=== PATIENT | female | born 1955 | race Caucasian/White ===

== ENCOUNTER → 2020-10-10 16:26 | Outpatient (CLI) | payer MEDICARE, SELFPAY ==
--- NOTE | ~2020-10-10 | MM_ITS ---
EXAMINATION: MM screening jonathan BI w lorraine HISTORY: Screening mammogram TECHNIQUE: Craniocaudal and mediolateral oblique 3-D tomosynthesis images were obtained and synthetic 2-D images were generated. CAD analysis was submitted and interpreted. COMPARISON: 07/04/2017, 05/09/2016, 04/06/2015 bilateral digital screening mammogram examinations BREAST PARENCHYMAL COMPOSITION: The breasts are heterogeneously dense, which may obscure small masses . FINDINGS: History of bilateral benign breast biopsies. Stable mild fibroglandular asymmetry. There is no evidence of suspicious mass, calcification, or architectural distortion to suggest malignancy in either breast. There has been no suspicious interval change. IMPRESSION: 1. No mammographic evidence of malignancy. 2. Recommend routine screening mammography in one year. BI-RADS Category 2: Benign finding(s). Reviewed, dictated and finalized at location A. LOGIST
== END ==
PROVIDERS: PCP Internal Medicine; Visit Provider Internal Medicine
DX: Z12.31 Encounter for screening mammogram for malignant neoplasm of breast (principal)
CPT/HCPCS: 77063; 77067

== ENCOUNTER → 2022-03-29 10:59 | Outpatient (CLI) | payer MEDICARE, SELFPAY ==
--- NOTE | ~2022-03-29 | DEXA_ITS ---
Bone Density Report Name: KEYANNA BARNES Age: 66 Sex: Female Ethnicity: White Date of : 1955 Indication: osteopenia; postmenopausal Referring Provider: RENNY MARKHAM Study: Bone densitometry was performed. Exam Date: March 29, 2022 Accession number: [id number] Bone Density: Region BMD T-score Z-score Classification AP Spine (L1-L4) 0.886 -1.5 0.5 Osteopenia Femoral Neck (Left) 0.661 -1.7 0.0 Osteopenia Total Hip (Left) 0.801 -1.2 0.3 Osteopenia Femoral Neck (Right) 0.690 -1.4 0.3 Osteopenia Total Hip (Right) 0.855 -0.7 0.7 Normal Total Hip Mean 0.828 -1.0 0.5 Normal World Health Organization criteria for BMD impression classify patients as: Normal (T-score at or above -1.0), Osteopenia (T-score between -1.0 and -2.5), or Osteoporosis (T-score at or below -2.5). 10-year Fracture Risk(1): Major Osteoporotic Fracture 10% Hip Fracture 1.4% Reported Risk Factors: [place] (), Neck BMD=0.661, BMI=26.1 (1) FRAX(R) Version 3.08. Fracture probability calculated for an untreated patient. Fracture probability may be lower if the patient has received treatment. Previous Exams: Region Exam Age BMD T-score BMD Change BMD Change Date g/cm2 vs Baseline vs Previous AP Spine(L1-L4) 03/29/2022 66 0.886 -1.5 -0.126* -0.030* 05/09/2016 60 0.916 -1.2 -0.096* -0.034* 02/09/2013 57 0.951 -0.9 -0.061* -0.003 11/24/2010 55 0.954 -0.8 -0.058* -0.058* 08/27/2007 51 1.012 -0.3 Total Hip(Left) 03/29/2022 66 0.801 -1.2 -0.107* -0.039* 05/09/2016 60 0.840 -0.8 -0.068* -0.033* 02/09/2013 57 0.873 -0.6 -0.035* -0.074* 11/24/2010 55 0.947 0.0 0.039* 0.039* 08/27/2007 51 0.908 -0.3 Total Hip(Right) 03/29/2022 66 0.855 -0.7 -0.097* -0.090* 05/09/2016 60 0.945 0.0 -0.006 0.061* 02/09/2013 57 0.884 -0.5 -0.067* -0.045* 11/24/2010 55 0.929 -0.1 -0.022 -0.022 08/27/2007 51 0.952 0.1 *Denotes significance at 95% confidence level, LSC for AP Spine = 0.022 g/cm2, LSC for Total Hip = 0.027 g/cm2 Clinical Information Provided by Patient: Patient maximum height was 61.0 Menopause Age: 58 Drinks caffeinated beverages Onset of menses at age 12 Number of children 2 Martha
== END ==
PROVIDERS: PCP Internal Medicine; Visit Provider Internal Medicine
DX: Z78.0 Asymptomatic menopausal state (principal); M85.88 Other specified disorders of bone density and structure, other site; M85.852 Other specified disorders of bone density and structure, left thigh; M85.851 Other specified disorders of bone density and structure, right thigh
CPT/HCPCS: 77080

== ENCOUNTER 2022-06-27 01:19 | Day surgery (SDC) | payer MEDICARE, SELFPAY ==
[2022-06-13 13:39] VITALS: BMI 26.2
--- NOTE | 2022-06-26 16:13 | PM.HPGS ---
History of Present Illness History of Present Illness Consent: Risks, benefits, and alternatives have been discussed and questions answered. Patient agrees to proceed with procedure. Chief complaint: hx of colon polyps, family hx colon ca Narrative: Tiffanie Campbell is a 66 year old female with history of polyps. Her last colonoscopy was 5 years ago when she had a small polyp removed at that time.Her mother from colon cancer and her maternal grandfather had colon cancer as well. Review of Systems Review of Systems: All systems reviewed & are unremarkable except as noted in HPI and below PMFSH Past Medical History Medical History Body mass index (bmi) 26.0-26.9, adult (12/12/17) Family History Family History Mother Carcinoma of colon, Onset Age: 65 Family history of primary malignant neoplasm of liver Father Malignant neoplasm of prostate, Onset Age: 92 Hypertension, Onset Age: 92 Grandparent Carcinoma of colon, Onset Age: 104 Social History Social History Smoking status: Never smoker Second hand tobacco smoke exposure: No Alcohol intake: current Drinks per week: 1 Alcohol use details: mixed drinks Substance use: never Substance use type: does not use Living arrangements: with family Spiritual care concerns: No Meds Home Medications and Allergies Home Medications Medication Instructions Recorded Confirmed Type aspirin 81 mg tablet,delayed 81 mg PO DAILY 10/08/19 06/13/22 History release (Aspir-) citalopram 10 mg tablet See Rx Instructions .Route 01/04/22 06/13/22 Rx .COMPLEX #90 tabs losartan 25 mg tablet See Rx Instructions .Route 02/19/22 06/13/22 Rx .COMPLEX #90 tabs sodium sul 1.479 gram-potas ch See Rx Instructions PO PER PKG DIR 02/27/22 06/27/22 Rx 0.188 gram-magnes sul 0.225 gram #24 tabs tablet (Sutab) hydrochlorothiazide 25 mg tablet See Rx Instructions .Route 03/08/22 06/13/22 Rx .COMPLEX #90 tabs loratadine 10 mg tablet (Claritin) 10 mg PO DAILY 06/13/22 06/13/22 History potassium chloride 10 mEq See Rx Instructions .Route 06/22/22 06/27/22 Rx capsule,extended release .COMPLEX #90 caps simvastatin 20 mg tablet 20 mg PO DAILY #90 tabs 06/22/22 06/27/22 Rx Allergies Allergy/AdvReac Type Severity Reaction Status Date / Time No Known Allergies Allergy Unknown Verified 06/27/22 06:26 Exam Resp: Auscultation: clear to auscultation bilaterally Cardio: Rate: regular rate Rhythm: regular rhythm GI: GI Palp: Yes Soft to palpation and No Tenderness to palpation present (GI) Assessment and Plan Assessment and plan (1) Colon cancer screening: Code(s): Z12.11 - Encounter for screening for malignant neoplasm of colon Status: Acute Assessment and Plan: Colonoscopy with possible biopsy or polypectomy or cautery or injection of substances.
[2022-06-27 06:27] VITALS: BP 159/96; PULSE 110; RESP 18; TEMP 36.6; O2SAT 97; BMI 26.6
[2022-06-27] MEDS: LACTATED RINGERS 1,000 ML 150 ML IV CONT (06:35)
--- NOTE | 2022-06-27 07:23 | WPDANESEPPF ---
Anes - Initial Pre Proc Eval Procedure: Operation Date: 06/27/22 07:30 Proposed Procedures p Screening Colonoscopy - Gurdeep Lance MD Date/Time: 06/27/22 07:23 Surgeon: Gurdeep Lance MD Pre Op Diagnosis: hx of colon polyps, family hx colon ca Patient Data Age: 66 Gender: F Height: 1.52 m Weight: 61.9 kg Last Vital Signs Temp 97.8 F 06/27/22 06:27 Pulse 110 H 06/27/22 06:27 Resp 18 06/27/22 06:27 BP 159/96 H 06/27/22 06:27 Pulse Ox 97 06/27/22 06:27 O2 Del Method Room Air 06/27/22 06:27 Allergies Allergy/AdvReac Type Severity Reaction Status Date / Time No Known Allergies Allergy Unknown Verified 06/27/22 06:26 Home Medications Medication Instructions Recorded Confirmed Type aspirin 81 mg tablet,delayed 81 mg PO DAILY 10/08/19 06/13/22 History release (Aspir-) citalopram 10 mg tablet See Rx Instructions .Route 01/04/22 06/13/22 Rx .COMPLEX #90 tabs losartan 25 mg tablet See Rx Instructions .Route 02/19/22 06/13/22 Rx .COMPLEX #90 tabs sodium sul 1.479 gram-potas ch See Rx Instructions PO PER PKG DIR 02/27/22 06/27/22 Rx 0.188 gram-magnes sul 0.225 gram #24 tabs tablet (Sutab) hydrochlorothiazide 25 mg tablet See Rx Instructions .Route 03/08/22 06/13/22 Rx .COMPLEX #90 tabs loratadine 10 mg tablet (Claritin) 10 mg PO DAILY 06/13/22 06/13/22 History potassium chloride 10 mEq See Rx Instructions .Route 06/22/22 06/27/22 Rx capsule,extended release .COMPLEX #90 caps simvastatin 20 mg tablet 20 mg PO DAILY #90 tabs 06/22/22 06/27/22 Rx Patient hx anesthesia problems: none Family hx anesthesia problems: none Results Review: All pre-operative results and documents have been reviewed as part of the pre-operative evaluation. [facility] Past Medical History Medical History Body mass index (bmi) 26.0-26.9, adult (12/12/17) Family History Family History Mother Carcinoma of colon, Onset Age: 65 Family history of primary malignant neoplasm of liver Father Malignant neoplasm of prostate, Onset Age: 92 Hypertension, Onset Age: 92 Grandparent Carcinoma of colon, Onset Age: 104 Social History Social History Smoking status: Never smoker Second hand tobacco smoke exposure: No Alcohol intake: current Drinks per week: 1 Alcohol use details: mixed drinks Substance use: never Substance use type: does not use Living arrangements: with family Spiritual care concerns: No Anes - Eval Final PreProcedure Day of Procedure 06/27/22 07:23 Patient weight: normal Heart: regular rate and rhythm Lungs: clear to auscultation Airway: Mallampati scale class II Neurological: alert and oriented Last oral intake: >/= 8 hours ASA classification: II Emergent: no Anesthetic plan: proceed Anesthesia type and monitoring: general GIVS and standard monitoring Results Review: All pre-operative results and documents have been reviewed as part of the pre-operative evaluation. Informed Consent: The patient's anesthetic plan and its attendant risks and benefits were discussed with the patient/family/POA. Questions were solicited and answers provided to the satisfaction of the patient/family/POA.
[2022-06-27 07:45] VITALS: BP 98/58; PULSE 95; RESP 22; O2SAT 93
[2022-06-27 07:55] VITALS: BP 97/63; PULSE 90; RESP 16; O2SAT 93
[2022-06-27 08:05] VITALS: BP 114/68; PULSE 91; RESP 18; O2SAT 93
== END 2022-06-27 08:15 | disposition home or self-care (01) ==
PROVIDERS: PCP Family Medicine; Visit Provider Internal Medicine Gastroenterology
PROC: 0DJD8ZZ Inspection of Lower Intestinal Tract, Via Natural or Artificial Opening Endoscopic (ICD-10-PCS; CPT 45378; principal; 2022-06-27 07:30)
DX: Z12.11 Encounter for screening for malignant neoplasm of colon (principal); Z86.010 Personal history of colon polyps; Z80.0 Family history of malignant neoplasm of digestive organs; K64.8 Other hemorrhoids; K57.30 Diverticulosis of large intestine without perforation or abscess without bleeding
CPT/HCPCS: G0105; J2704; J7120

== ENCOUNTER → 2022-11-16 13:48 | Outpatient (CLI) | payer MEDICARE, SELFPAY ==
--- NOTE | ~2022-11-16 | MM_ITS ---
EXAMINATION: MM screening jonathan BI w lorraine HISTORY: Screening TECHNIQUE: Craniocaudal and mediolateral oblique 3-D tomosynthesis images were obtained and synthetic 2-D images were generated. CAD analysis was submitted and interpreted. COMPARISON: Comparison to multiple prior studies sequentially, with oldest reviewed study dated 02/10. BREAST PARENCHYMAL COMPOSITION: There are scattered areas of fibroglandular density. FINDINGS: There is no evidence of suspicious mass, calcification, or architectural distortion to sugg est malignancy in either breast. There has been no suspicious interval change. IMPRESSION: 1. No mammographic evidence of malignancy. 2. Recommend routine screening mammography in one year. BI-RADS Category 1: Negative Reviewed, dictated and finalized at location A. YARD WORKER
== END ==
PROVIDERS: PCP Family Medicine; Visit Provider Family Medicine
DX: Z12.31 Encounter for screening mammogram for malignant neoplasm of breast (principal)
CPT/HCPCS: 77063; 77067

== ENCOUNTER 2023-05-28 08:06 | Outpatient (CLI) | payer MEDICARE, SELFPAY ==
[2023-05-28 14:21] LABS: Alanine Aminotransferase 27 U/L (6-35); Albumin Level 4.5 g/dL (3.5-5.1); Alkaline Phosphatase 79 U/L (38-126); Anion Gap 7 mmol/L (8-16); Aspartate Amino Transferase 43 U/L (14-36); Bilirubin,Total 0.5 mg/dL (0.2-1.3); Blood Urea Nitrogen 19 mg/dL (7-17); Calcium 9.7 mg/dL (8.4-10.2); Carbon Dioxide 28 mmol/L (22-30); Chloride 99 mmol/L (98-107); Cholesterol 220 mg/dL (0-200); Estimated Glomerular Filt Rate > 60; Glucose 99 mg/dL (65-110); HDL Direct 50 mg/dL; Potassium 3.3 mmol/L (3.4-5.0); Sodium 134 mmol/L (137-145); Triglycerides 226 mg/dL (<150)
[2023-05-28 14:32] LABS: LDL Cholesterol Direct 102 mg/dL
== END 2023-05-28 08:07 | disposition home or self-care (01) ==
PROVIDERS: PCP Family Medicine; Visit Provider Family Medicine
DX: E78.5 Hyperlipidemia, unspecified (principal); I10 Essential (primary) hypertension
CPT/HCPCS: 36415; 80053; 80061

== ENCOUNTER 2023-06-13 13:51 | Outpatient (CLI) | payer MEDICARE, SELFPAY ==
[2023-06-13 17:21] LABS: Alanine Aminotransferase 28 U/L (6-35); Albumin Level 4.6 g/dL (3.5-5.1); Alkaline Phosphatase 73 U/L (38-126); Anion Gap 9 mmol/L (8-16); Aspartate Amino Transferase 48 U/L (14-36); Bilirubin,Total 0.4 mg/dL (0.2-1.3); Blood Urea Nitrogen 23 mg/dL (7-17); Calcium 9.1 mg/dL (8.4-10.2); Carbon Dioxide 29 mmol/L (22-30); Chloride 97 mmol/L (98-107); Estimated Glomerular Filt Rate > 60; Glucose 117 mg/dL (65-110); Potassium 3.3 mmol/L (3.4-5.0); Sodium 135 mmol/L (137-145)
== END 2023-06-13 13:52 | disposition home or self-care (01) ==
LOC: ANHGOSHLAB 13:53
PROVIDERS: PCP Family Medicine; Visit Provider Family Medicine
DX: R89.9 Unspecified abnormal finding in specimens from other organs, systems and tissues (principal)
CPT/HCPCS: 36415; 80053

== ENCOUNTER 2023-07-16 10:14 | Outpatient (CLI) | payer MEDICARE, SELFPAY ==
[2023-07-16 12:21] LABS: Anion Gap 8 mmol/L (8-16); Blood Urea Nitrogen 22 mg/dL (7-17); Calcium 9.6 mg/dL (8.4-10.2); Carbon Dioxide 27 mmol/L (22-30); Chloride 100 mmol/L (98-107); Estimated Glomerular Filt Rate > 60; Glucose 106 mg/dL (65-110); Potassium 3.8 mmol/L (3.4-5.0); Sodium 135 mmol/L (137-145)
== END 2023-07-16 10:15 | disposition home or self-care (01) ==
PROVIDERS: PCP Family Medicine; Visit Provider Family Medicine
DX: E87.6 Hypokalemia (principal)
CPT/HCPCS: 36415; 80048

== ENCOUNTER → 2023-12-19 12:11 | Outpatient (CLI) | payer MEDICARE, SELFPAY ==
--- NOTE | ~2023-12-19 | MM_ITS ---
EXAMINATION: MM screening jonathan BI w lorraine HISTORY: Screening TECHNIQUE: Craniocaudal and mediolateral oblique 3-D tomosynthesis images were obtained and synthetic 2-D images were generated. CAD analysis was submitted and interpreted. COMPARISON: Comparison to multiple prior studies sequentially, with oldest reviewed study dated 04/06. BREAST PARENCHYMAL COMPOSITION: There are scattered areas of fibroglandular density. FINDINGS: There is no evidence of suspicious mass, calcification, or architectural distortion to sugg est malignancy in either breast. There has been no suspicious interval change. IMPRESSION: 1. No mammographic evidence of malignancy. 2. Recommend routine screening mammography in one year. BI-RADS Category 1: Negative Reviewed, dictated and finalized at location A. RY AND WAGE ADMINISTRATOR
== END ==
PROVIDERS: PCP Family Medicine; Visit Provider Family Medicine
DX: Z12.31 Encounter for screening mammogram for malignant neoplasm of breast (principal)
CPT/HCPCS: 77063; 77067

== ENCOUNTER 2024-05-05 08:19 | Outpatient (CLI) | payer MEDICARE, SELFPAY ==
[2024-05-05 13:22] LABS: Alanine Aminotransferase 28 U/L (6-35); Albumin Level 4.6 g/dL (3.5-5.1); Alkaline Phosphatase 92 U/L (38-126); Anion Gap 11 mmol/L (4-12); Aspartate Amino Transferase 46 U/L (14-36); Bilirubin,Total 0.7 mg/dL (0.2-1.3); Blood Urea Nitrogen 18 mg/dL (7-17); Calcium 9.4 mg/dL (8.4-10.2); Carbon Dioxide 27 mmol/L (22-30); Chloride 100 mmol/L (98-107); Cholesterol 202 mg/dL (0-200); Estimated Glomerular Filt Rate > 60; Glucose 99 mg/dL (65-110); HDL Direct 48 mg/dL; Potassium 3.8 mmol/L (3.4-5.0); Sodium 138 mmol/L (137-145); Triglycerides 199 mg/dL (<150)
[2024-05-05 13:33] LABS: LDL Cholesterol Direct 99 mg/dL
== END 2024-05-05 08:20 | disposition home or self-care (01) ==
PROVIDERS: PCP Family Medicine; Visit Provider Family Medicine
DX: E78.5 Hyperlipidemia, unspecified (principal); Z13.228 Encounter for screening for other metabolic disorders
CPT/HCPCS: 36415; 80053; 80061

== ENCOUNTER 2024-07-17 14:53 | Emergency (ER) | payer MEDICARE, SELFPAY ==
[2024-07-17 15:02] VITALS: BP 162/82; PULSE 111; RESP 18; TEMP 37.1; O2SAT 98
--- NOTE | 2024-07-17 15:02 | ED.FEMALEGU ---
HPI - Female Genitourinary General Chief complaint: Urogenital-Female Stated complaint: Urinary Problems Time Seen by Provider: 07/17/24 15:05 Source: patient Mode of arrival: ambulatory Limitations: no limitations History of Present Illness HPI Narrative: Tiffanie is a 68-year-old female patient presenting to the clinic today with complaints burning with urination, frequency, urgency for the past 3 days. She denies any fever, chills, body aches, nausea, vomiting, back pain, or abdominal pain. No vaginal discharge or odor. Related Data Allergies Allergy/AdvReac Type Severity Reaction Status Date / Time No Known Allergies Allergy Unknown Verified 07/17/24 15:06 Review of Systems Review of Systems: Pertinent positives per HPI. Patient denies any fever, chills, rash, headache, visual changes, dizziness, cough, runny nose, sore throat, shortness of breath, chest pain, palpitations, nausea, vomiting, diarrhea, constipation, abdominal pain PMFSH Past Medical History Medical History Body mass index (bmi) 26.0-26.9, adult (12/12/17) Family History Family History Mother Carcinoma of colon, Onset Age: 65 Family history of primary malignant neoplasm of liver Father Malignant neoplasm of prostate, Onset Age: 92 Hypertension, Onset Age: 92 Grandparent Carcinoma of colon, Onset Age: 104 Social History Social History Social History: caffeine- 1 glass tea daily Smoking status: Never smoker Second hand tobacco smoke exposure: No Alcohol intake: current Alcohol use details: 1 every 2 months Substance use: never Substance use type: does not use Do You Feel Safe in your Home?: Yes Lack of Transportation: No Lack of Food: Never True Current Housing: I Have Housing Concerned About Future Housing: No Difficulty Paying Gas/Electric Bills: No Difficulty Paying for Meds: No Currently Unemployed: No Education: Bachelor's Degree Difficulty w/ Childcare or Family Care: No Living arrangements: with family Spiritual care concerns: No Comments At the time of my signature, I reviewed and agree with the nursing past medical, surgical, social, and family history. There is no relevant family history pertinent to the patient complaint. Exam Narrative: General: Well-developed, well nourished, in no apparent distress. Head: Normocephalic, atraumatic. Cardio: Regular rate and rhythm, s1 and s2 normal, no murmur appreciated. Resp: Clear to auscultation bilaterally, no rhonchi, rales, wheezing or rubs. Abdomen: Soft, pliable, bowel sounds present in all quadrants, suprapubic tender to palpation, no organomegly, no CVAT tenderness. Course Course Emergency Course: Portions of this record may have been created with voice recognition software. Level of Care: Express Care Visit Vital Signs Vital signs: Vital Signs Temperature 37.1 C 07/17/24 15:02 Pulse Rate 111 H 07/17/24 15:02 Respiratory Rate 18 07/17/24 15:02 Blood Pressure 162/82 H 07/17/24 15:02 Pulse Oximetry 98 07/17/24 15:02 Oxygen Delivery Room Air 07/17/24 15:02 Temperature 37.1 C 07/17/24 15:02 Pulse Rate 111 H 07/17/24 15:02 Respiratory Rate 18 07/17/24 15:02 Blood Pressure 162/82 H 07/17/24 15:02 Pulse Oximetry 98 07/17/24 15:02 Oxygen Delivery Room Air 07/17/24 15:02 Vital signs reviewed MDM - Female Genitourinary MDM Narrative Medical decision making narrative: At the time of visit patient is resting comfortably on the exam table. Patient appears to be nontoxic. Labs: Urinalysis was performed and shows trace of leukocytes and trace of hematuria. We will send urine for culture. Plan: I suspect patient has urinary tract infection. Prescription for Keflex was sent to th
[2024-07-20 14:24] LABS: EDUAAPPEAR Clear; EDUABILI Negative (Negative); EDUABLOOD Trace (Negative); EDUACOLOR1 Yellow; EDUAGLUCOSE Negative (Negative); EDUAKETONE Negative (Negative); EDUALEUKO Trace (Negative); EDUANITRATE Negative (Negative); EDUAPROTEIN Negative (Negative); EDUASPGRAVITY 1.015; EDUAUROBILI 0.2
== END 2024-07-17 15:27 | disposition home or self-care (01) ==
PROVIDERS: Emergency Provider Nurse Practitioner Family; PCP Family Medicine
DX: N30.01 Acute cystitis with hematuria (principal)
CPT/HCPCS: 81003; 87086; 99213; G0463

== ENCOUNTER 2024-08-27 11:07 | Emergency (ER) | payer MEDICARE, SELFPAY ==
--- NOTE | 2024-08-27 11:14 | ED_ITS ---
HPI - General Adult General Chief complaint: Urogenital-Female Stated complaint: uti, symptoms,cough, lt ear discomfort Time Seen by Provider: 08/27/24 11:32 Source: patient, RN notes reviewed and old records reviewed Mode of arrival: ambulatory Limitations: no limitations History of Present Illness HPI narrative: 68-year-old female presents to the [facility] with multiple complaints. Patient with concerns for a urinary tract infection. Patient reports frequency and occasional burning for approximately 10 days. Patient with concerns for upper respiratory infection, cough, left ear discomfort. Patient states that it started over a month ago. Cough is been intermittent. Reports left ear pressure. States that she does take Claritin and uses Flonase daily. Patient denies fevers. Denies abdominal pain. Denies nausea or vomiting or diarrhea. Related Data Allergies Allergy/AdvReac Type Severity Reaction Status Date / Time No Known Allergies Allergy Unknown Verified 08/27/24 11:21 Review of Systems Review of Systems: All systems reviewed & are unremarkable except as noted in HPI and below Constitutional: Constitutional: Reports no additional constitutional complaints ENT: Reports as per HPI Cardiovascular: Cardiovascular: Reports no additional cardiovascular complaints, Denies chest pain and Denies dyspnea Respiratory: Respiratory: Reports no additional respiratory complaints, Denies chest congestion, Denies cough and Denies dyspnea Gastrointestinal: Gastrointestinal: Reports no additional gastrointestinal complaints, Denies abdominal pain, Denies nausea and Denies vomiting Genitourinary: Genitourinary: Reports as per HPI Musculoskeletal: Musculoskeletal: Reports no additional musculoskeletal complaints Integumentary/Breasts: Skin/Breast: Reports system reviewed and no additional complaints, except as docu PMFSH Past Medical History Medical History Anxiety with depression Benign essential hypertension Body mass index (bmi) 26.0-26.9, adult (12/12/17) Hyperlipidemia LDL goal <130 Pure hypercholesterolemia Family History Family History Mother Carcinoma of colon, Onset Age: 65 Family history of primary malignant neoplasm of liver Father Malignant neoplasm of prostate, Onset Age: 92 Hypertension, Onset Age: 92 Grandparent Carcinoma of colon, Onset Age: 104 Social History Social History Social History: caffeine- 1 glass tea daily Smoking status: Never smoker Second hand tobacco smoke exposure: No Alcohol intake: current Alcohol use details: 1 every 2 months Substance use: never Substance use type: does not use Do You Feel Safe in your Home?: Yes Lack of Transportation: No Lack of Food: Never True Current Housing: I Have Housing Concerned About Future Housing: No Difficulty Paying Gas/Electric Bills: No Difficulty Paying for Meds: No Currently Unemployed: No Education: Bachelor's Degree Difficulty w/ Childcare or Family Care: No Living arrangements: with family Spiritual care concerns: No Comments At the time of my signature, I reviewed and agree with the nursing past medical, surgical, social, and family history. There is no relevant family history pertinent to the patient complaint. Exam Const: General: cooperative, healthy appearing, comfortable, no acute distress, well developed, alert and well nourished Nutritional Appearance: well nourished Orientation/consciousness: patient oriented x3 Limitations: no limitations HENMT: Head: normal to inspection Ears: hearing grossly normal bilaterally, external ears normal, EAC's normal, mastoids normal, no periauricular adenopathy and TM abnormal bulging on the left and with fluid behind the TM bilateral; not erythematous Face/Nose/Sinus: Normal external nose present, normal facial exam and face symmetric Face and sinus: normal facial exam and face symmetric Mouth: Yes Normal oral and palatal mucosa present, Yes lip normal and Yes tongue normal Throat: posterior oropharynx normal, uvula midline and no uvular edema Eyes: General: appearance normal, both eyes and all related structures Alignment and Position: alignment normal Periorbital: periorbital findings normal Neck: Neck: normal visual inspection, full ROM, no lymphadenopathy and no meningeal signs Chest: Chest palpation & inspection: normal inspection of the chest Resp: Effort & Inspection: normal respiratory effort and able to speak in complete sentences Auscultation: clear to auscultation bilaterally, no crack les, no rales, no rhonchi and no wheezes Cardio: Rate: regular rate : General: Yes no CVA tenderness Skin: General skin exam: normal color and no rashes or lesions noted Lesions: no lesions Rashes: no rashes Wounds: no wounds Neuro: General: patient oriented x3, gait normal, tone normal, moves all ex tremities and no meningeal signs Cognition (Neuro): normal cognition Speech: normal speech Gait exam (Neuro): Normal gait present Extrem: General: normal to inspection, full ROM, capillary refill normal and normal gait Psych: Appearance: grossly normal and well kempt Mental Status: mental status grossly normal Speech and movement: Normal speech and movement present and Clear speech present Affect: normal affect Attitude: cooperative Course Course Level of Care: Express Care Visit Vital Signs Vital signs: Vital Signs Temperature 97.1 F L 08/27/24 11:27 Pulse Rate 126 H 08/27/24 11:27 Respiratory Rate 16 08/27/24 11:27 Blood Pressure 168/91 H 08/27/24 11:27 Pulse Oximetry 98 08/27/24 11:27 Temperature 97.1 F L 08/27/24 11:27 Pulse Rate 126 H 08/27/24 11:27 Respiratory Rate 16 08/27/24 11:27 Blood Pressure 168/91 H 08/27/24 11:27 Pulse Oximetry 98 08/27/24 11:27 Reviewed Medical Decision Making MDM Narrative Medical decision making narrative: Patient sitting comfortably in exam room. Nontoxic, vitals stable. Patient in no acute distress Patient presents for 2 complaints. Concern for upper respiratory, cough an ear pain for over a month. Patient also concerns for a UTI. Urine dip did not show signs of an infection, will culture Patient with intermittent cough for 1 month and ear pain for over a month. No signs of bacterial infection, appropriate for outpatient treatment with steroid and [id number] products Discharge instructions reviewed with patient, as well as provided in writing per nursing staff. The instructions also include specific and strict return/GO TO THE ER as well as f/u information. All questions have been answered, and the patient deny any further questions with discharge and discharge plan. Some parts of this dictation were generated by voice recognition software and may contain typographical and/or grammatical inaccuracies. Differential Diagnosis Differential Diagnosis: URI, UTI, allergy Medical Records Medical records reviewed: Yes I reviewed the external patient's medical records. Vital Signs Vital Signs: Vital Signs Temperature 97.1 F L 08/27/24 11:27 Pulse Rate 126 H 08/27/24 11:27 Respiratory Rate 16 08/27/24 11:27 Blood Pressure 168/91 H 08/27/24 11:27 Pulse Oximetry 98 11/07/24 11:27 Temperature 97.1 F L 08/27/24 11:27 Pulse Rate 126 H 08/27/24 11:27 Respiratory Rate 16 08/27/24 11:27 Blood Pressure 168/91 H 08/27/24 11:27 Pulse Oximetry 98 08/27/24 11:27 Reviewed Lab Data Lab results reviewed: Yes I reviewed the patient's lab results. Labs: Lab Results 08/27/24 Range/Units 11:32 POC Urine Color Yellow POC Urine Clarity Clear POC Urine pH 5.5 POC Ur Specif Donner 1.030 POC Urine Protein Negative (Negative) POC Ur Glucose (UA) Negative (Negative) POC Urine Ketones Negative (Negative) POC Urine Blood Trace (Negative) POC Urine Nitrite Negative (Negative) POC Urine Bilirubin Negative (Negative) POC Urine Urobilinogen 0.2 POC U Leukocyte Esteras Negative (Negative) Reviewed Critical Care Time Critical Care Time Critical Care Time: No Discharge Plan Discharge Clinical Impression: Acute serous otitis media of left ear, Dysuria Patient Disposition: Home, Self-Care Condition: Stable Instructions: Chronic Cough (ED), Dysuria (ED), Fluid In The Ear (Serous Otitis Media) (ED) Additional Instructions: Today your blood pressure was 168/91. It is recommended that you do follow-up with your primary care provider to have this rechecked. Increased water intake, decrease your Tea intake Take Tylenol as needed for pain Today your urine dip did not show signs of a UTI. You have been prescribed an antibiotic. Your urine will be sent to our lab for a culture. If at that time a bacteria grows, we aill notify you and call in an antibiotic. -Alternate Tylenol and Motrin per package directions for fever or pain. -Antihistamine medication such as Benadryl at night and Zyrtec/Claritin/Lidia during the day can help improve symptoms. -doing daily nasal irrigations can help relieve pressure your sinuses. Things like a Neti pot -Use Flonase twice a day for 5 days then daily to help reduce the inflammation and dry up your sinuses. -You can also use Coricidin HBP or Mucinex. Be sure to drink plenty of water with these medications at least 8 ounces with every dose and it is important to drink 8 to 10 glasses of water per day. Water is a natural decongestant -Eat and drink things that are easy to swallow, like tea or soup, or popsicles. -Oral rinses such as: Salt water gargles and/or may use topical anesthetic (eg. Chloraseptic spray) or lozenges to relieve dryness or throat pain). -Frequent hand washing or hand high school professional is one of the best ways to prevent spread of infection. -Using a vaporizer or humidifier at night will also help thin secretions and help with coughing up phlegm. -Follow up with primary care provider in 7 days if condition is not improving - For new or worsening symptoms go directly to the nearest ER Patient Language: Welsh Prescriptions: New methylprednisolone [Medrol (Hubert)] 4 mg tablets,dose pack See Rx Instructions PO .COMPLEX Qty: 21 0RF Rx Instructions: orally per package directions No Action potassium chloride 20 mEq tablet extended release 20 meq PO DAILY Qty: 90 1RF citalopram 10 mg tablet 10 mg PO DAILY Qty: 90 1RF losartan 25 mg tablet 25 mg PO DAILY Qty: 90 1RF simvastatin 20 mg tablet 20 mg PO DAILY Qty: 90 1RF Follow-up/Referrals: Giacomo Duran DO [Primary Care Provider] - 2 Weeks ([facility] care follow up blood pressure check ) Stand Alone Forms: Work/School Release IP Time of Disposition: 11:45
[2024-08-27 11:27] VITALS: BP 168/91; PULSE 126; RESP 16; TEMP 36.2; O2SAT 98
[2024-08-27 11:40] LABS: EDUAAPPEAR Clear; EDUABILI Negative (Negative); EDUABLOOD Trace (Negative); EDUACOLOR1 Yellow; EDUAGLUCOSE Negative (Negative); EDUAKETONE Negative (Negative); EDUALEUKO Negative (Negative); EDUANITRATE Negative (Negative); EDUAPH 5.5; EDUAPROTEIN Negative (Negative); EDUAUROBILI 0.2
== END 2024-08-27 11:50 | disposition home or self-care (01) ==
PROVIDERS: Emergency Provider Nurse Practitioner; PCP Family Medicine
DX: H65.02 Acute serous otitis media, left ear (principal); R30.0 Dysuria; I10 Essential (primary) hypertension; E78.5 Hyperlipidemia, unspecified; E78.00 Pure hypercholesterolemia, unspecified
CPT/HCPCS: 81003; 87086; 99213; G0463

== ENCOUNTER 2024-09-04 10:05 | Outpatient (CLI) | payer MEDICARE, SELFPAY ==
--- NOTE | ~2024-09-04 | DEXA_ITS ---
Bone Density Report Name: KEYANNA BARNES Age: 68 Sex: Female Ethnicity: White Date of : 1955 Indication: postmenopausal; screening for osteoporosis; Referring Provider: EVANS CUBA Study: Bone densitometry was performed. Exam Date: September 04, 2024 Accession number: [id number] Bone Density: Region BMD T-score Z-score Classification AP Spine(L1-L4) 0.907 -1.3 0.9 Osteopenia Femoral Neck (Left) 0.655 -1.7 0.1 Osteopenia Total Hip (Left) 0.892 -0.4 1.1 Normal Femoral Neck (Right) 0.650 -1.8 0.0 Osteopenia Total Hip (Right) 0.878 -0.5 1.0 Normal Total Hip Mean 0.885 -0.5 1.1 Normal World Health Organization criteria for BMD impression classify patients as: Normal (T-score at or above -1.0), Osteopenia (T-score between -1.0 and -2.5), or Osteoporosis (T-score at or below -2.5). 10-year Fracture Risk(1): Major Osteoporotic Fracture 11% Hip Fracture 1.8% Reported Risk Factors: [place] (), Neck BMD=0.655, BMI=27.2 (1) FRAX(R) Version 3.08. Fracture probability calculated for an untreated patient. Fracture probability may be lower if the patient has received treatment. Clinical Information Provided by Patient: Has used the following medications: Calcium Patient maximum height was 61 Menopause Age: 58 Drinks caffeinated beverages Onset of menses at age 12 Number of children 2 Impression: The patient has low bone mass, based on the Right Femoral Neck T-score. The patient has an estimated ten-year risk of hip fracture of 1.8% and an estimated ten-year risk of major fracture of 11%, based on the WHO FRAX algorithm. Discussion: BONE DENSITY IS LOW AT ONE OR MORE SKELETAL SITES. This patient's lowest T-score is low at one or more skeletal sites. It meets the World Health Organization's (WHO) criteria for ?low bone mass? (T-score between -1.0 and -2.5). The patient's 10-year risk of fracture as calculated by FRAX is less than the threshold where pharmacological therapy is recommended by the National Osteoporosis Foundation (NOF). However, all treatment decisions require clinical judgment and consideration of individual patient factors, including patient preferences, comorbidities, previous drug use, risk factors not captured in the FRAX model (e.g., frailty, falls, vitamin D deficiency, increased bone turnover, interval significant decline in bone density) and possible under or overestimation of fracture risk by FRAX. The patient should follow a healthful lifestyle (good nutrition with adequate calcium and vitamin D, and appropriate weight-bearing exercise). Follow-Up: Consider repeating this study in 2 to 3 years to reassess this patient's status, or sooner if there is some new clinical indication. Reported by: JODI on 09/04/2024 10:56:00 AM. Reviewed, dictated and finalized at location [facility]
== END 2024-09-04 10:06 | disposition home or self-care (01) ==
LOC: ANHIMG 10:05
PROVIDERS: PCP Family Medicine; Visit Provider Family Medicine
DX: Z78.0 Asymptomatic menopausal state (principal); Z13.820 Encounter for screening for osteoporosis; M85.88 Other specified disorders of bone density and structure, other site; M85.852 Other specified disorders of bone density and structure, left thigh; M85.851 Other specified disorders of bone density and structure, right thigh
CPT/HCPCS: 77080

== ENCOUNTER 2025-02-25 14:15 | Outpatient (CLI) | payer MEDICARE, SELFPAY ==
--- NOTE | ~2025-02-25 | MM_ITS ---
EXAMINATION: MM screening jonathan BI w lorraine HISTORY: Screening TECHNIQUE: Craniocaudal and mediolateral oblique 3-D tomosynthesis images were obtained and synthetic 2-D images were generated. CAD analysis was submitted and interpreted. COMPARISON: Comparison to multiple prior studies sequentially, with oldest reviewed study dated 05/09. BREAST PARENCHYMAL COMPOSITION: Not dense: There are scattered areas of fibroglandular density. FINDINGS: There is no evidence of suspicious mass, calcification, or architectural distortion to sugg est malignancy in either breast. There has been no suspicious interval change. IMPRESSION: 1. No mammographic evidence of malignancy. 2. Recommend routine screening mammography in one year. BI-RADS Category 1: Negative Reviewed, dictated and finalized at location A.
== END 2025-02-25 14:16 | disposition home or self-care (01) ==
LOC: MICIMG 14:15
PROVIDERS: PCP Nurse Practitioner Family; Visit Provider Nurse Practitioner Family
DX: Z12.31 Encounter for screening mammogram for malignant neoplasm of breast (principal)
CPT/HCPCS: 77063; 77067

== ENCOUNTER 2025-03-02 08:30 | Outpatient (CLI) | payer MEDICARE, SELFPAY ==
--- OUTSIDE RECORDS SUMMARY | 2025-03-02 08:38 | XMS_ITS | Clinical Summary ---
Author Organization [facility] Address [address] [address] Phone Care Team Providers Care Roll Table Operator Name Role Phone Unavailable Primary Care Provider Unavailabl e Medications hydrocortisone (ANUSOL-HC) 25 MG Suppository Use twice daily as needed 24 Suppository 0 6 Active hydrocortisone (ANUSOL-HC) 2.5 % Cream Apply daily. Apply to rectum as directed. 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 Gender Identity Not on file Sexual Orientation Not on file Plan of Treatment Health Maintenance Due Date Last Done Comments DEXA Bone Density 1955 Hepatitis C Virus (HCV) Screening 1955 TdaP Immunization 1955 Cologuard 2003 Immunochemical Fecal Occult Blood 2003 Mammogram 2003 Pneumococcal Immunization (5 0+ years) (1 of 1 - PCV) 2003 Zoster Immunization (1 of 2) 2003 Influenza Immunization (#1) 2024 SARS-COV-2 Immunization ( - 2023- season) 2024 Colonoscopy 08/19/2024 08/19/2014 Colorectal Cancer Screening 08/19/2024 Respiratory Syncytial Virus (RSV) Immunization (Adult) (1 - 1-dose 75+ series) 2028 08/19/2014 Hepatitis B Immunization Aged Out No longer eligible based on patient's age to complete this topic Meningococcal Immunization (ACWY) Aged Out No longer eligible based on patient's age to complete this topic Rotavirus Immunization Aged Out No lo nger eligible based on patient's age to complete this topic Procedures Procedure Name Priority Date/Time Associated Diagnosis Comments COLONOSCOPY Routine 08/19/2014 from Last 3 Months or Most Recently Relevant to Health Maintenance Results * COLONOSCOPY (08/19/2014) Miguel Maryjane Leerod DO PROCEDURE/MINOR SURGICAL ORDERA BLES Final Result from Last 3 Months or Most Recently Relevant to Health Maintenance Insurance [facility]
--- OUTSIDE RECORDS SUMMARY | 2025-03-02 08:38 | XMS_ITS | Clinical Summary ---
Author Organization [facility] Address [address] [place] [address] Care Team Providers Care Deburrer Machine Name Role Phone Demian Momin MD Primary Care Provider [phone] Source Comments [facility],non-owned Affiliates and Associated Physician Practices is amultiple site organization consisting of ambulatory clinics and hospital sitesin [place], [place], [place] and [place]. This disclosure is being madepursuant to the Care Everywhere program and may not contain all information available regarding this patient. Last updated 18.[facility] Allergies No known active allergies Medications * Be aware that medications may not be up to date on this document. Alwaysverify current medications with the patient. hydrochlorothia zide (MICROZIDE) 12.5 MG capsule Take 12.5 mg by mouth once daily. Active metoprolol succinate XL 24hr (TOPROL XL) 50 MG tablet Take 50 mg by mouth once daily. Active saline nasal spray (OCEAN; BABY AYR) 0.65 % nasal spray Drake 1 Drake into each nostril every 6 hours as needed for Dry Nose (Dryness). 60 mL 1 10/26/2011 Active hydrocodone-anneliese taminophen (NORCO) 5-325 MG tablet Take 1 Tab by mouth every 4 hours as needed for Pain. 30 Tab 0 11/15/2011 Active hydrocodone-anneliese taminophen (NORCO) 5-325 MG tablet Take 1 Tab by mouth every 4 hours as needed for Pain. 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 Gender Identity Not on file Sexual Orientation Not on file Last Filed Vital Signs Vital Sign Reading Time Taken Comments Blood Pressure 116/72 12/06/2011 5:04 PM BALANCE SCREW[employer] POLISHER Pulse 70 12/06/2011 4:21 PM BALANCE SCREW[employer] POLISHER Temperature 36.9 C (98.4 F) 12/06/2011 4:21 PM BALANCE SCREWHEAD POLISHER Respiratory Rate 16 12/06/2011 4:21 PM BALANCE SCREWHEAD POLISHER Oxygen Saturation 98% 12/06/2011 4:21 PM BALANCE SCREWHEAD POLISHER Inhaled Oxygen Concentration 40% 10/25/2011 6 :30 PM BALANCE SCREWHEAD POLISHER Weight 60.3 kg (133 lb) 12/06/2011 1:32 PM BALANCE SCREWHEAD POLISHER Height 154.9 cm (5' 1 ) 12/06/2011 1:32 PM BALANCE SCREWHEAD POLISHER Body Mass Index 25.13 12/06/2011 1:32 PM BALANCE SCREWHEAD POLISHER Plan of Treatment Health Maintenance Due Date Last Done Comments BONE DENSITY TESTING 1955 COLOGUARD (AGES 45-75) - COL ON CA SCREENING 1955 COLON MONITORING 1955 COLONOSCOPY - COLON CA SCREENING 1953 CT COLONOGRAPHY - COLON CA SCREENING 1955 Colorectal Cancer Screening 1955 FIT - COLON CA SCREENING 1955 FLEX SIG - COLON CA SCREENING 1955 LIPID TESTING 1955 MAMMOGRAM 1955 HEPATITIS C SCREENING 10/02/1971 DTAP/TDAP/TD VACCINES (1 - Tdap) 1972 PNEUMOCOCCAL VACCINE 50+ (1 of 1 - PCV) 2003 ZOSTER VACCINE (1 of 2) 2003 COVID-19 VACCINE (1 - 2023-2 5 season) 2024 DEPRESSION SCREENING 10/21/2024 MEDICARE AWV CALENDAR YEAR 2024 INFLUENZA VACCINE (Season Ended) 2025 Respiratory Syncytial Virus (RSV) Vaccine Pt: or over 60 yrs (1 - 1-dose 75+ series) 2028 HEPATITIS B VACCINE Aged Out No longe r eligible based on patient's age to complete this topic HIB VACCINE Aged Out No longer eligi ble based on patient's age to complete this topic HPV VACCINE Aged Out No longer eligi ble based on patient's age to complete this topic MENINGOCOCCAL (Group B) VACC INE SHARED DECISION-MAKING Aged Out No longer eligibl e based on patient's age to complete this topic MENINGOCOCCAL GROUPS A/C/Y/W VACCINE Aged Out No longer eligible b ased on patient's age to complete this topic Insurance [employer] MANAGED MEDICARE ADV Advance Directives * FULL RESUSCITATION (Latest Code Status on File) Date Activated Date Inactivated Comments 10/25/2011 8:24 PM 10/26/2011 10:26 PM Care Teams Deburrer Machine Relationship Specialty Start Date End Date Demian Momin MD [address] [place] [address] PCP - General 09/27/11
--- OUTSIDE RECORDS SUMMARY | 2025-03-02 08:38 | XMS_ITS | Clinical Summary ---
Author Organization [facility] Address [address] [place] [address] Care Team Providers Care Manager Mall Name Role Phone Demian Momin MD Primary Care Provider [phone] Allergies Active Allergy Reactions Criticality Noted Date Comments Levonorgestrel-Ethinyl Estrad Headache Low 2010 Medications [place]-3 Fatty Acids 1,000 mg Oral Cap Take by mouth 2 times daily. Active Calcium Carbonate-Vit D3-Min (CALTRATE 600+D PLUS MINERALS) 600 mg (1,500 mg)-400 unit Oral Chew Take by mouth 2 times daily. Active aspirin (ASPIR-81) 81 mg Oral TbEC Take 81 mg by mouth daily. Active fluticasone (FLONASE) 50 mcg/spray [place], SuspensionIndic ations:Chronic rhinitis Administer 2 Sprays in each nostril daily. 16 Gram 5 4 Active simvastatin (ZOCOR) 20 mg tablet Take 1 Tab by mouth Daily LATE. 90 Tab 3 4 Active sertraline (ZOLOFT) 25 mg tabletIndicatio ns:Anxiety Take 1 Tab by mouth daily. 90 Tab 3 4 Active metoprolol succinate (TOPROL XL) 50 mg Extended Release 24 hour tabletIndicatio ns:Essential hypertension, benign Take 1 Tab by mouth daily. 90 Tab 3 4 Active hydrochlorothia zide 25 mg Oral tabletIndicatio ns:Essential hypertension, benign Take 1 Tab by mouth daily. 90 Tab 3 4 Active potassium chloride (MICRO-K EXTENCAPS) 10 mEq Extended Release capsule TAKE ONE CAPSULE BY MOUTH ONCE DAILY 90 Capsule 4 06/22/2023 9:05 AM CDT 2 Active azithromycin (ZITHROMAX) 250 mg tablet Take 2 tablets (500 mg) by mouth today, then take 1 tablet by mouth (250 mg) for 4 days. 6 Tablet 12/18/2022 5:01 PM CAFE AIDE 3 Active benzonatate (TESSALON) 100 mg capsule Take 1 Capsule (100 mg) by mouth 3 times daily as needed for cough. 40 Capsule 12/18/2022 5:01 PM CAFE AIDE 3 Active methylPREDNISol one (MEDROL DOSPACK) 4 mg Tablets, Dose Pack Take as directed on package. 21 Each 12/18/2022 5:01 PM CAFE AIDE 3 Active losartan (COZAAR) 25 mg tablet Take 1 Tablet (25 mg) by mouth daily. 90 Tablet 1 08/12/2023 2:05 PM CDT 3 Active hydroCHLOROthia zide 25 mg tablet Take 1 Tablet (25 mg) by mouth daily. 90 Tablet 1 05/30/2023 12:56 PM CDT 3 Active citalopram (CeleXA) 10 mg tablet Take 1 Tablet (10 mg) by mouth daily. 90 Tablet 1 12/13/2023 1:27 PM CAFE AIDE 3 Active hydroCHLOROthia zide 12.5 mg tablet Take 1 Tablet (12.5 mg) by mouth daily. 90 Tablet 1 01/15/2024 12:10 PM CDT 4 Active potassium chloride (K-TAB) 20 mEq Extended Release tablet Take 1 tablet by mouth daily 90 Tablet 1 02/07/2024 1:29 PM CDT 4 Active methylPREDNISol one (MEDROL DOSPACK) 4 mg Tablets, Dose Pack TAKE DIRECTED ON PACKAGE. 21 Each 08/28/2024 11:48 AM CAFE AIDE 4 Active citalopram (CeleXA) 10 mg tablet Take 1 Tablet (10 mg) by mouth daily. 90 Tablet 1 12/23/2024 10:04 AM CAFE AIDE 4 Active simvastatin (ZOCOR) 20 mg tablet Take 1 Tablet (20 mg) by mouth daily. 90 Tablet 1 02/03/2025 3:11 PM CDT 4 Active losartan (COZAAR) 25 mg tablet Take 1 Tablet (25 mg) by mouth daily. 90 Tablet 1 02/03/2025 3:11 PM CDT 4 Active omeprazole (PriLOSEC) 20 mg Capsule, Delayed Release(E.C.) Take 1 Capsule (20 mg) by mouth 1 time daily as needed FOR HEARTBURN. 90 Capsule 1 01/13/2025 12:41 PM CDT 5 Active Active Problems Problem Noted Date Diagnosed Date Basal cell carcinoma 05/21/2014 Overview (05/21/2014): S/P Mohs via Dr. Painter at [facility] (generalized anxiety disorder) 02/06/2013 Hyperlipemia 02/06/2013 History of scarlet fever 10/11/2011 Essential hypertension, benign 12/21/2010 Screening breast examination 12/21/2010 Overview (12/21/2010): UTD with Dr Hughes Family history of colon cancer 12/21/2010 Overview (12/21/2010): UTD with colonoscopy - repeat due 2013 First scope had polyp Resolved Problems Problem Noted Date Diagnosed Date Resolved Date Screening for osteoporosis 12/21/2010 0 02/06/2013 Encounters Date Type Department Care Team Description 01/06/2025 External Device Data [facility] Provider, Abstract 12/26/2024 External Device Data [facility] Provider, Abstract 12/25/2024 External Device Data [facility] Provider, Abstract 12/22/2024 External Device Data [facility] Provider, Abstract 12/08/2024 External Device Data [facility] Provider, Abstract from Last 3 Months Immunizations Immunization Administration Dates Next Due INFLUENZA VACCINE HIGH DOSE QUADRIVALENT 65 YR U P PF IM 07/13/2023 INFLUENZA VACCINE HIGH DOSE TRIVALENT SPLIT VIRUS, (65 YR UP), 0.5ML (PF), IM 09/03/2024 Family History Medical History Relation Name Comments Hypertension Brother Cancer Father Cancer Mother Relation Name Status Comments Brother Father Mother Social History Tobacco Use Types Packs/Day Years Used Date Smoking Tobacco: Never Alcohol Use Standard Drinks/Week Comments Yes 0 (1 standard drink = 0.6 oz pur e alcohol) rarely Comments No Sex and Gender Information Value Date Recorded Sex Assigned at Not on file Legal Sex Female 5:59 AM CAFE AIDE Gender Identity Not on file Sexual Orientation Not on file Occupation Industry Job Start Date Job End Date Not on file Not on file Not on file Not on file Last Filed Vital Signs Vital Sign Reading Time Taken Comments Blood Pressure 152/90 05/21/2014 10:25 AM CDT Pulse 70 05/21/2014 10:25 AM CDT Temperature 36.6 C (97.9 F) 12/21/2010 1:44 PM CAFE AIDE Respiratory Rate 14 05/21/2014 10:25 AM CDT Oxygen Saturation - - Inhaled Oxygen Concentration - - Weight 61.7 kg (136 lb) 05/21/2014 10:25 AM CDT Height 154.9 cm (5' 1 ) 05/21/2014 10:25 AM CDT Body Mass Index 25.7 05/21/2014 10:25 AM CDT Plan of Treatment Health Maintenance Due Date Last Done Comments DTAP/TDAP/TD VACCINES (1 - Tdap) 1972 FIT-DNA Q 3 years 1998 FIT/FOBT Q 1 year 1998 Flex Sig/CT Colonography Q 5 years 1998 PNEUMOCOCCAL VACCINE 50+ YEA RS (1 of 1 - PCV) 2003 ZOSTER VACCINE (1 of 2) 2003 BREAST CANCER SCREENING 02/17/2014 02/18/20 13, 01/20/2012, 11/21/2010 OSTEOPOROSIS SCREENING 2018 COLORECTAL SCREENING 09/03/2019 09/03/2014, 06/21/20 09 Colorectal Cancer Screening 09/03/2019 RSV VACCINE (60+ or ) (1 - 1-dose 75+ series) 2028 INFLUENZA VACCINE Completed 09/03/2024, 07/13/2023 Procedures Procedure Name Priority Date/Time Associated Diagnosis Comments ENDOSCOPY, COLON, SCREENING Routine 09/03/2014 from Last 3 Months or Most Recently Relevant to Health Maintenance Results * ENDOSCOPY, COLON, SCREENING (09/03/2014) us Historical Provider GI PROCEDURE ORDERABLES Edit ed Result - Final [facility] from Last 3 Months or Most Recently Relevant to Health Maintenance [place] [address] [facility] BLUE ACCESS CHOICE [place] [address] RX OPTUM RX Member Subscriber Plan / Payer (Ef fective for All Dates) Name:TIFFANIE BARNES Relation to Subscriber:Self Name:Tiffanie Barnes Payer ID:Not on file Group ID:[facility] Type:RX Medicare Part D Address: [address] RX FRAZIER PLANS (INTERNAL) [facility] Care Teams Manager Mall Relationship Specialty Start Date End Date Demian Momin MD PCP - General Internal Medicine 12/21/10
--- OUTSIDE RECORDS SUMMARY | 2025-03-02 08:38 | XMS_ITS | Continuity of Care Document ---
Author Organization [facility] Address [address] [place] [address] [address] [place] [address] Phone Care Team Providers Care Director Of Preclinical Research Name Role Phone Ophelia Julian Unavailable Unavailable Advance Directives Directive Yes / No Effective Date File Name No Information Encounters Encounter Description Practice Location Reason(s) For Visit Diagnoses Date Provider Providers Copied on Encounter [facility], [address], [place], [place], [id number], [place] tel:[phone] [facility] No Information [address] Iesha Jacinto. [address] , [address], [place], [address], [place]. tel:[phone] Family History Family Member Type Diagnosis Age At Onset No Information Payers Payer name Insurance type Covered green party ID Authoriza tion(s) No Information Social History Type Description Quantity Date Captured Comments Sex Female Smoking Status No Information Chief Complaint And Reason For Visit No Information Reason For Referral Reason For Referral No Information History Of Present Illness Encounter Date Complaint History Of Prese nt Illness No Information Functional Status Date Functional Assessmen t No Information Instructions Date Instruction Additional Infor mation No Information Assessments Type Assessment Date No Information Patient Care Teams Name Effective Dates (start - stop) Status Members No Information
--- NOTE | 2025-03-12 17:41 | P.SLEEP_ITS ---
Sleep Study - Home Unattended Date of Study: 03/02/25 Ordering Provider: Navya Nash NP Interpreting Provider: Kristan Cazares MD Home Sleep Study Type: Watch PAT Height: 1.55 m Weight: 65.771 kg Body Mass Index: 27.3 Neck Circumference (inches): 16.5 [place]: 1 Reason for Sleep Study Loud snoring, witnessed apneas Her dentist recommended a sleep study when she asked about an oral appliance. Sleep History Tiffanie Campbell is a 69-year-old woman with loud snoring and witnessed apneas per her . Her medical history significant for hypertension and anxiety with depression. She does not gasp for breath at night. She says that she does not have more problems breathing on her back compared to her side. She does not awaken with a morning headache. She does awaken with a dry mouth or a sore throat. She does not have nocturnal heartburn. She does not wake to urinate. She has never had a prior sleep study. She has no trouble falling asleep or staying asleep, however she awakens before her desired wake time. She does not feel anxious about her sleep. She does not feel refreshed on waking. She does not grind her teeth at night, she does not kick excessively and she denies having restless or uncomfortable feelings in her legs before bed. She does not have an urge to move her legs in the evening before sleep. Her normal sleep schedule is bedtime at 10:00 p.m., falling asleep within 30 minutes, spending 8 hours in bed and all of this time asleep. She does not feel refreshed upon waking. She maintains the same schedule on weekends. Habits: Tobacco : never smoker Caffeine : 1-2 daily Alcohol : none Recreational substances : none PMFSH Past Medical History Medical History GERD (gastroesophageal reflux disease) Osteopenia of multiple sites Dyslipidemia Anxiety with depression Benign essential hypertension Body mass index (bmi) 26.0-26.9, adult (12/12/17) Hx of skin cancer, basal cell Family History Family History Mother Carcinoma of colon, Onset Age: 65 Family history of primary malignant neoplasm of liver Father Malignant neoplasm of prostate, Onset Age: 92 Hypertension, Onset Age: 92 Grandparent Carcinoma of colon, Onset Age: 104 Social History Social History Social History: caffeine- 1 glass tea daily Smoking status: Never smoker Second hand tobacco smoke exposure: No Alcohol intake: current Alcohol use details: 1 every 2 months Substance use: never Substance use type: does not use Do You Feel Safe in your Home?: Yes Lack of Transportation: No Lack of Food: Never True Current Housing: I Have Housing Concerned About Future Housing: No Difficulty Paying Gas/Electric Bills: No Difficulty Paying for Meds: No Currently Unemployed: No Education: Bachelor's Degree Difficulty w/ Childcare or Family Care: No Living arrangements: with family Spiritual care concerns: No Medications Home Medications ?Medication ?Instructions ?Recorded ?Confirmed ?Type citalopram 10 mg tablet 10 mg PO DAILY #90 tabs 09/14/24 01/13/25 Rx losartan 25 mg tablet 25 mg PO DAILY #90 tabs 01/13/25 01/13/25 Rx omeprazole 20 mg capsule,delayed 20 mg PO DAILY PRN heartburn #90 01/13/25 01/13/25 Rx release caps simvastatin 20 mg tablet 20 mg PO DAILY #90 tabs 01/13/25 01/13/25 Rx Sleep Procedure The sleep study was completed using Degree ControlsT a technically adequate device with seven channels: peripheral arterial tone, actigraphy, body position, snore, respiratory movement, pulse oximetry, sleep staging, and heart rate. Prior to using the device, the patient received verbal and written instructions for its application and was provided with the help desk phone number for additional telephonic instruction with 24-hour availability of qualified personnel to answer questions. Sleep Architecture The total recording time is 7 hrs, 5 min. The total sleep time is 6 hrs, 3 min. Sleep latency is 15 minutes. REM latency is 154 minutes. The patient had 6 episodes of waking. Sleep architecture shows 19.4% deep sleep, 54.6% light sleep, and 26.0% stage REM. The patient spent 51.0% of total sleep time in the supine position. Sleep efficiency was 85%. Respiratory Analysis The overall AHI ( pAHI 4%) is 10.1, mild severity. The overall apnea hypopnea index (pAHI 3%:) is 21.2. The central AHI is 0.0. The AHI was 15.3 in NREM and 37.3 in REM sleep. The AHI was 42.1 in Supine and 0.7 in Non-supine sleep. Percent of Miguel Siddiqi respirations is 0%. Oximetry Data The oxygen desaturation index (JERED 4%:) is 10.1. The mean saturation is 93%, and the lowest saturation is 87%. Time spent with saturation < 88% is 0.2 minutes. Snoring Profile Snoring average intensity is 50 dB. The patient snored above 45 decibels for 232.6 minutes, 64.1% of sleep time. Cardiac Profile The average pulse rate is 75 beats per minutes. The lowest pulse rate is 56 bpm. The highest pulse rate is 103. Cardiac rhythm analysis in sleep does not show atrial fibrillation. Assessment and Plan Assessment and Plan (1) Obstructive sleep apnea: Code(s): G47.33 - Obstructive sleep apnea (adult) (pediatric) Status: Acute Assessment and Plan: This home sleep test using WatchPat on 03/02/2025 shows mild obstructive sleep apnea with an apnea hypogea index of 10.1 using a 4% criteria, desaturation to 87%, and loud snoring for much of the night. The patient has medical co- morbidities including hypertension and a mood disorder, allowing her to have treatment for her apnea. She is a candidate for PAP therapy or an oral appliance. Her primary care visit on January 13 stated that her dentist recommended a sleep test before discussing treatment with an oral appliance. If she has treatment using an oral appliance, consider a follow up polysomnogram using the oral device to assure that her treatment is adequate. If she decides to have treatment with positive airway pressure, consider a Resmed AirSense 11 AutoPAP 5-15 cm H2O, CPAP mask/filters/tubing and humidifier chamber with all episodes of sleep with a compliance check within 31-90 days of starting therapy for usage greater than 4 hours per night greater than 70% of the nights. The patient should be asked about symptoms such as excessive daytime sleepiness, quality of sleep, decreased nocturia, increased mental functioning such as yaima ry, mood, and concentration. (2) Positional sleep apnea: Code(s): G47.39 - Other sleep apnea Status: Acute Assessment and Plan: The supine apnea hypopnea indes is twice as severe in the supine position compared to the overall value. She can consider using pillows positioned on her back and abdomen to maintain her position in the lateral position to avoid snoring and apnea. This is not a durable treatment, however it may help to attenuate the severity of her apnea in the supine position. Her supine AHI is 42.1, the non-supine AHI is 0.7. Data The data obtained during this sleep study is adequate for interpretation. Certification This sleep study has been reviewed by a board certified sleep medicine physician.
[2025-03-12 18:32] VITALS: BMI 27.3
== END 2025-03-03 11:31 | disposition home or self-care (01) ==
PROVIDERS: PCP Nurse Practitioner Family; Visit Provider Nurse Practitioner Family
DX: G47.19 Other hypersomnia (principal); G47.33 Obstructive sleep apnea (adult) (pediatric); G47.39 Other sleep apnea
CPT/HCPCS: 95800

== ENCOUNTER 2025-09-08 08:13 | Outpatient (CLI) | payer MEDICARE, SELFPAY ==
[2025-09-08 15:17] LABS: Alanine Aminotransferase 53 U/L (6-35); Albumin Level 4.7 g/dL (3.5-5.1); Alkaline Phosphatase 92 U/L (38-126); Anion Gap 10 mmol/L (4-12); Aspartate Amino Transferase 47 U/L (14-36); Bilirubin,Total 0.4 mg/dL (0.2-1.3); Blood Urea Nitrogen 16 mg/dL (7-17); Calcium 9.3 mg/dL (8.4-10.2); Carbon Dioxide 25 mmol/L (22-30); Chloride 100 mmol/L (98-107); Estimated Glomerular Filt Rate > 60; Glucose 93 mg/dL (65-110); Potassium 3.8 mmol/L (3.4-5.0); Sodium 135 mmol/L (137-145); Total Protein 8.0 g/dL (6.3-8.2)
[2025-09-08 15:53] LABS: Thyroid Stimulating Hormone Reflex 3.770 uIU/mL (0.465-4.68)
[2025-09-10 10:46] LABS: Cholesterol 201 mg/dL (0-200); HDL Direct 56 mg/dL; Triglycerides 149 mg/dL (<150)
== END 2025-09-08 08:14 | disposition home or self-care (01) ==
LOC: ANHGOSHLAB 08:16
PROVIDERS: PCP Nurse Practitioner Family; Visit Provider Nurse Practitioner Family
DX: E55.9 Vitamin D deficiency, unspecified (principal); I10 Essential (primary) hypertension; E78.5 Hyperlipidemia, unspecified
CPT/HCPCS: 36415; 80053; 80061; 82306; 84443

== ENCOUNTER 2025-09-23 10:29 | Outpatient (CLI) | payer MEDICARE, SELFPAY ==
--- OUTSIDE RECORDS SUMMARY | 2025-09-23 11:39 | XMS_ITS | Clinical Summary ---
Author Organization [facility] Address [address] [place] [address] Care Team Providers Care Bilingual Student Tutor Name Role Phone Demian Momin MD Primary Care Provider [phone] Allergies Active Allergy Reactions Criticality Noted Date Comments Levonorgestrel-Ethinyl Estrad Headache Low 2010 Medications [place]-3 Fatty Acids 1,000 mg Oral Cap Take by mouth 2 times daily. Active Calcium Carbonate-Vit D3-Min (CALTRATE 600+D PLUS MINERALS) 600 mg (1,500 mg)-400 unit Oral Chew Take by mouth 2 times daily. Active aspirin (ASPIR-81) 81 mg Oral TbEC Take 81 mg by mouth daily. Active fluticasone (FLONASE) 50 mcg/spray [place], SuspensionIndi cations:Chroni c rhinitis Administer 2 Sprays in each nostril daily. 16 Gram 5 4 Active simvastatin (ZOCOR) 20 mg tablet Take 1 Tab by mouth Daily LATE. 90 Tab 3 4 Active sertraline (ZOLOFT) 25 mg tabletIndicati ons:Anxiety Take 1 Tab by mouth daily. 90 Tab 3 4 Active metoprolol succinate (TOPROL XL) 50 mg Extended Release 24 hour tabletIndicati ons:Essential hypertension, benign Take 1 Tab by mouth daily. 90 Tab 3 4 Active hydrochlorothi azide 25 mg Oral tabletIndicati ons:Essential hypertension, benign Take 1 Tab by mouth [...] 4 days. 6 Tablet 12/18/2022 5:01 PM BUSINESS PROPOSAL REP 3 Active benzonatate (TESSALON) 100 mg capsule Take 1 Capsule (100 mg) by mouth 3 times daily as needed for cough. 40 Capsule 12/18/2022 5:01 PM BUSINESS PROPOSAL REP 3 Active methylPREDNISo lone (MEDROL DOSPACK) 4 mg Tablets, Dose Pack Take as directed on package. 21 Each 12/18/2022 5:01 PM BUSINESS PROPOSAL REP 3 Active losartan (COZAAR) 25 mg tablet Take 1 Tablet (25 mg) by mouth daily. 90 Tablet 1 08/12/2023 2:05 PM CDT 3 Active hydroCHLOROthi azide 25 mg tablet Take 1 Tablet (25 mg) by mouth daily. 90 Tablet 1 05/30/2023 12:56 PM CDT 3 Active citalopram (CeleXA) 10 mg tablet Take 1 Tablet (10 mg) by mouth daily. 90 Tablet 1 12/13/2023 1:27 PM BUSINESS PROPOSAL REP 3 Active hydroCHLOROthi azide 12.5 mg tablet Take 1 Tablet (12.5 mg) by mouth daily. 90 Tablet 1 01/15/2024 12:10 PM CDT 4 Active potassium chloride (K-TAB) 20 mEq Extended Release tablet Take 1 tablet by mouth daily 90 Tablet 1 02/07/2024 1:29 PM CDT 4 Active methylPREDNISo lone (MEDROL DOSPACK) 4 mg Tablets, Dose Pack TAKE DIRECTED ON PACKAGE. 21 Each 08/28/2024 11:48 AM BUSINESS PROPOSAL REP 4 Active losartan (COZAAR) 25 mg tablet Take 1 Tablet (25 mg) by mouth daily. 90 Tablet 1 07/31/2025 2:10 PM CDT 5 Active simvastatin (ZOCOR) 20 mg tablet Take 1 Tablet (20 mg) by mouth daily. 90 Tablet 1 08/10/2025 3:41 PM CDT 5 Active omeprazole (PriLOSEC) 20 mg Capsule, Delayed Release(E.C.) Take 1 Capsule (20 mg) by mouth 1 time daily as needed for heartburn 90 Capsule 1 07/16/2025 6:03 PM CDT 5 Active citalopram (CeleXA) 10 mg tablet Take one tablet (10 mg) orally daily 90 Tablet 1 09/21/2025 11:03 AM BUSINESS PROPOSAL REP 5 Active citalopram (CeleXA) 10 mg tablet Take 1 Tablet (10 mg) by mouth daily. 90 Tablet 1 06/17/2025 2:12 PM CDT 5 [facility]20/20 [facility] Active Problems Problem Noted Date Diagnosed Date Basal cell carcinoma 05/21/2014 Overview (05/21/2014): S/P Mohs via Dr. Painter at [facility] (generalized anxiety disorder) 02/06/2013 Hyperlipemia [...] Encounters Date Type Department Care Team Description 08/11/2025 External Device Data [facility] Provider, Abstract 08/10/2025 External Device Data [facility] Provider, Abstract 07/13/2025 External Device Data [facility] Provider, Abstract 07/06/2025 External Device Data [facility] Provider, Abstract from Last 3 Months Immunizations Immunization Administration Dates Next Due INFLUENZA VACCINE HIGH DOSE QUADRIVALENT 65 YR UP PF IM 07/13/2023 INFLUENZA VACCINE HIGH DOSE TRIVALENT SPLIT VIRUS, (65 YR UP), 0.5ML (PF), IM 08/04/2025,09/03/2024 Family History Medical History Relation Name Comments [...] on file Legal Sex Female 5:59 AM BUSINESS PROPOSAL REP Gender Identity Not on file Sexual Orientation Not on file Occupation Industry Job Start Date Job End Date Not on file Not on file Not on file Not on file Last Filed Vital Signs Vital Sign Reading Time Taken Comments Blood Pressure 152/90 05/21/2014 10:25 AM CDT Pulse 70 05/21/2014 10:25 AM CDT Temperature 36.6 C (97.9 F) 12/21/2010 1:44 PM BUSINESS PROPOSAL REP Respiratory Rate 14 05/21/2014 10:25 AM CDT Oxygen Saturation - - Inhaled Oxygen Concentration - - Weight 61.7 kg (136 lb) 05/21/2014 10:25 AM CDT Height 154.9 cm (5' 1) 05/21/2014 10:25 AM CDT Body Mass Index [...] 1-dose 75+ series) 2028 INFLUENZA VACCINE Completed 08/04/2025, , 07/13/2023 Procedures Procedure Name Priority Date/Time Associated Diagnosis Comments ENDOSCOPY, COLON, SCREENING Routine 09/03/2014 from Last 3 Months or Most Recently Relevant to Health Maintenance Results * ENDOSCOPY, COLON, SCREENING (09/03/2014) us Historical Provider GI PROCEDURE ORDERABLES Edit ed Result - Final [facility] from Last 3 Months or Most Recently Relevant to Health Maintenance Insurance [facility] [place] [id number] [facility] BLUE ACCESS CHOICE RX OPTUM RX Member Subscriber Plan / Payer (Ef fective for All Dates) Name:KEYANNA BARNES Relation to Subscriber:Self Name:Keyanna Barnes Payer ID:Not on file Group ID:[id number] Type:RX Medicare Part D Address: [address] RX FRAZIER PLANS (INTERNAL) [facility] Care Teams Bilingual Student Tutor Relationship Specialty Start Date End Date Demian Momin MD PCP - General Internal Medicine 12/21/10
--- OUTSIDE RECORDS SUMMARY | 2025-09-23 11:39 | XMS_ITS | Clinical Summary ---
Author Organization [facility] Address [address] [address] Phone Care Team Providers Care Automatic Spooler Operator Name Role Phone Unavailable Primary Care [...] on file Legal Sex Female 3:14 AM CONDUCTOR PULLMAN Gender Identity Not on file Sexual Orientation Not on file Plan of Treatment Health Maintenance Due Date Last Done Comments Hepatitis C Virus (HCV) Screening 1955 TdaP Immunization 1955 Cologuard 1998 Immunochemical Fecal Occult Blood 1998 Pneumococcal Immunization (5 0+ years) (1 of 1 - PCV) 2003 Zoster Immunization (1 of 2) 2003 Colonoscopy 08/19/2024 08/19/2014 Colorectal Cancer Screening 08/19/2024 Influenza Immunization (#1) 2025 SARS-COV-2 Immunization ( season) 2025 Respiratory Syncytial Virus (RSV) Immunization (Adult) (1 - 1-dose 75+ series) 2028 Hepatitis B Immunization Aged Out No longer eligible based on patient's age to complete this topic Human Papillomavirus (HPV) Immunization Aged Out No longer eligible b ased [...] Maintenance Results * COLONOSCOPY (08/19/2014) Miguel Maryjane Sebas DO PROCEDURE/MINOR SURGICAL ORDERA BLES Final Result from Last 3 Months or Most Recently Relevant to Health Maintenance Insurance [facility]
--- OUTSIDE RECORDS SUMMARY | 2025-09-23 11:39 | XMS_ITS | Clinical Summary ---
Author Organization [facility] [employer] Address [address] [place] [address] Care Team Providers Care Public Relations Officer Name Role Phone Demian Momin MD Primary Care Provider [phone] Source Comments [facility],non-owned Affiliates and Associated Physician Practices is amultiple site organization consisting of ambulatory clinics and hospital sitesin [place], [place], [place] and [place]. This disclosure is being madepursuant to the Care Everywhere program and may not contain all information available regarding this patient. Last updated 18.[facility] Allergies No known active allergies Medications * [...] (OCEAN; BABY AYR) 0.65 % nasal spray Clio 1 Clio into each nostril every 6 hours as [...] on file Legal Sex Female 12:52 PM STAPLE SHEAR OPERATOR Gender Identity Not on file Sexual Orientation Not on file Last Filed Vital Signs Vital Sign Reading Time Taken Comments Blood Pressure 116/72 12/06/2011 5:04 PM STAPLE SHEAR OPERATOR Pulse 70 12/06/2011 4:21 PM STAPLE SHEAR OPERATOR Temperature 36.9 C (98.4 F) 12/06/2011 4:21 PM STAPLE SHEAR OPERATOR Respiratory Rate 16 12/06/2011 4:21 PM STAPLE SHEAR OPERATOR Oxygen Saturation 98% 12/06/2011 4:21 PM STAPLE SHEAR OPERATOR Inhaled Oxygen Concentration 40% 10/25/2011 6 :30 PM STAPLE SHEAR OPERATOR Weight 60.3 kg (133 lb) 12/06/2011 1:32 PM STAPLE SHEAR OPERATOR Height 154.9 cm (5' 1) 12/06/2011 1:32 PM STAPLE SHEAR OPERATOR Body Mass Index 25.13 12/06/2011 1:32 PM STAPLE SHEAR OPERATOR Plan of Treatment Health Maintenance Due Date [...] 2003 ZOSTER VACCINE (1 of 2) 2003 DEPRESSION SCREENING 10/21/2024 COVID-19 VACCINE (1 - 2024-2 6 season) 2025 INFLUENZA VACCINE (#1) 2025 Respiratory Syncytial Virus (RSV) Vaccine Pt: [...] 8:24 PM 10/26/2011 10:26 PM Care Teams Public Relations Officer Relationship Specialty Start Date End Date Demian Momin MD [address] [place] [address] PCP - General 09/27/11
[2025-09-23 14:33] LABS: Magnesium 2.1 mg/dL (1.6-2.3)
[2025-09-23 14:39] LABS: Hematocrit 37.6 % (37.0-47.0); Hemoglobin 12.3 g/dL (12.0-15.0); Immature Granulocyte Percent A 0.1 % (0-0.5); Lymphocytes Absolute Auto 2.24 K/mm3 (0.9-3.2); Mean Corpuscular HGB Conc 32.7 g/dl (32-36); Mean Corpuscular Hemoglobin 30.2 pg (26-34); Mean Corpuscular Volume 92.4 fl (80-100); Nucleated Red Blood Cells Absolute Auto 0.000 K/mm3 (0.0-0.012); Nucleated Red Blood Cells Perc 0.0 % (0.0-0.2); Platelet Count Result 246 k/mm3 (150-375); Red Blood Count 4.07 M/mm3 (4.2-5.4); White Blood Count 7.6 K/mm3 (4.5-10.0)
[2025-09-23 15:27] LABS: Vitamin B12 312.0 pg/mL (239-931)
== END 2025-09-23 10:30 | disposition home or self-care (01) ==
LOC: ANHGOSHLAB 10:30
PROVIDERS: PCP Nurse Practitioner Family; Visit Provider Nurse Practitioner Family
DX: F41.8 Other specified anxiety disorders (principal); E78.5 Hyperlipidemia, unspecified; I10 Essential (primary) hypertension
CPT/HCPCS: 36415; 82607; 83735; 85025